=== PATIENT | female | born 1975 | race Caucasian/White ===

== ENCOUNTER 2018-01-19 10:37 | Emergency (ER) | payer SELFPAY ==
[~2018-01-19] VITALS: Ht 149.9 cm; Wt 52.2 kg
[2018-01-19] MEDS ORDERED: PANTOPRAZOLE 40 MG/10 ML (PROTONIX) VIAL IV ONE (10:45)
[2018-01-19] MEDS ORDERED: NS IV 1000 ML 1,000 ML IV ONE (10:45)
[2018-01-19] MEDS ORDERED: raNItidine 50 MG/2 ML INJ (ZANTAC) IM/IV ONE (10:45)
[2018-01-19] MEDS ORDERED: ONDANSETRON 4 MG/2 ML (SDV) Z0FRAN IVP ONE (10:45)
[2018-01-19 11:07] LABS: BASOPHILS % (AUTO) 0 % (0-10); EOSINOPHILS # (AUTO) 0.2 10^3/uL (0.0-0.3); EOSINOPHILS % (AUTO) 1 % (0-10); HEMATOCRIT 46 % (35-52); HEMOGLOBIN 15.6 G/DL (11.5-16.0); LYMPHOCYTES # (AUTO) 1.1 X 10^3 (1.0-4.0); LYMPHOCYTES % (AUTO) 7 % (12-44); MEAN CORPUSCULAR HEMOGLOBIN 25 PG (25-34); MEAN CORPUSCULAR HGB CONC 34 G/DL (32-36); MEAN CORPUSCULAR VOLUME 75 FL (80-99); MEAN PLATELET VOLUME 10.1 FL (7.4-10.4); MONOCYTES # (AUTO) 1.2 X 10^3 (0.0-1.0); MONOCYTES % (AUTO) 8 % (0-12); NEUTROPHILS # (AUTO) 12.8 X 10^3 (1.8-7.8); NEUTROPHILS % (AUTO) 84 % (42-75); PLATELET COUNT 364 10^3/uL (130-400); RED BLOOD COUNT 6.16 10^6/uL (4.35-5.85); RED CELL DISTRIBUTION WIDTH 14.6 % (10.0-14.5); WHITE BLOOD COUNT 15.2 10^3/uL (4.3-11.0)
[2018-01-19 11:26] LABS: ALANINE AMINOTRANSFERASE 99 U/L (0-55); ALBUMIN 4.6 GM/DL (3.2-4.5); ALKALINE PHOSPHATASE 187 U/L (40-136); AMMONIA 29 UMOL/L (11-32); AMYLASE 52 U/L (25-125); BILIRUBIN,TOTAL 0.4 MG/DL (0.1-1.0); BUN/CREATININE RATIO 20; CALCIUM 9.2 MG/DL (8.5-10.1); CARBON DIOXIDE 26 MMOL/L (21-32); CHLORIDE 103 MMOL/L (98-107); CREATININE SERUM 0.76 MG/DL (0.60-1.30); GFR ESTIMATED > 60; GLUCOSE 130 MG/DL (70-105); LIPASE 36 U/L (8-78); MAGNESIUM 1.9 MG/DL (1.8-2.4); POTASSIUM 3.9 MMOL/L (3.6-5.0); SODIUM 139 MMOL/L (135-145); TOTAL PROTEIN 7.5 GM/DL (6.4-8.2)
[2018-01-19 11:38] LABS: BAND NEUTROPHILS 17 %; BASOPHILS % (MANUAL) 0 %; EOSINOPHILS % (MANUAL) 1 %; LYMPHOCYTES % (MANUAL) 3 %; MONOCYTES % (MANUAL) 6 %; NEUTROPHILS % (MANUAL) 73 %; RBC MORPH NORMAL
[2018-01-19] MEDS ORDERED: NS 250 ML (IVPB) BAG IV ONE (12:15)
[2018-01-19] MEDS ORDERED: CATHETER FLUSH 10 ML SYR IV PRN (12:15)
[2018-01-19] MEDS ORDERED: IOHEXOL 350 MG/ML 100 ML (OMNIPAQUE 350) VIAL IV ONE (12:15)
--- NOTE | 2018-01-19 13:13 | Diagnostic Imaging Report ---
PROCEDURE: CT chest, abdomen, and pelvis with contrast. TECHNIQUE: Multiple contiguous axial images were obtained through the chest, abdomen, and pelvis after the administration of intravenous contrast. INDICATION: Epigastric pain, hematemesis. History of appendectomy and hysterectomy. COMPARISON: None. FINDINGS: CT chest: The heart is normal in size. No mediastinal adenopathy is seen. The central pulmonary vessels are normal. The aorta is unremarkable. No hilar adenopathy is seen. There are mildly prominent axillary lymph nodes bilaterally, the largest on the right measuring 8 mm in short axis, and the largest on the left measuring 9 mm in short axis. These may be reactive. Imaged portions of the nondistended esophagus are unremarkable. The lungs demonstrate no focal consolidation. Minimal opacity at the dependent left lung is likely atelectasis. No pleural effusion or pneumothorax is seen. No central endobronchial lesions are identified. No acute osseous abnormality is seen. CT abdomen and pelvis: No focal liver lesions are seen. The spleen is normal. The pancreas appears normal. The adrenal glands are normal. The kidneys demonstrate no focal lesions. Hyperdensities within the kidneys may represent stones versus early contrast excretion. The small and large bowel contains fluid. There is wall thickening of the small bowel, which is mildly prominent. No obstruction is seen. No free air is seen. There is no free fluid. No acute osseous abnormality is seen. The urinary bladder is decompressed. IMPRESSION: 1. Wall thickening of the small bowel with fluid throughout the large and small bowel. Findings are suggestive of enterocolitis. No evidence of obstruction is seen. 2. Mildly prominent bilateral axillary lymph nodes, likely reactive. 3. No acute thoracic abnormality seen. Dictated by: Dictated on workstation # [id number]
--- NOTE | 2018-01-19 13:27 | ED Abdominal Pain ---
General Chief Complaint: Abdominal/GI Problems Stated Complaint: N/V-VOMITING BLOOD Nursing Triage Note: PT ARRIVED PER EMS, PT CO OF VOMITING BLOOD FOR A WEEK, PT MALE FRIEND STATES VOMITED ABOUT A PINT OF BLOOD, PT SMELLS OF BLOOD AT THIS X. NO BLOOD NOTED ON PT AT THIS X. DENIES DRINKING FOR 5 YEARS, CO OF ABD PAIN 07/13 Sepsis Screen: No Definite Risk Source of Information: Patient Exam Limitations: No Limitations History of Present Illness Date Seen by Provider: Jan 19, 2018 Time Seen by Provider: 10:39 Initial Comments This 42-year-old woman presents to the emergency room via EMS after having episodes of hematemesis for the past few days. She has had black and red streaking in her emesis as stated by EMS who visualized the emesis at the home. Patient complains of some epigastric pain. She denies any recent alcohol use and states she quit drinking alcohol about 5 years ago. However, she does admit to recent methamphetamine use. She presents accompanied by her boyfriend. She recently moved to the area from [place] a few months ago. She has no local provider yet. She denies any fever or diarrhea. She has had normal bowel movements. Allergies and Home Medications Allergies Coded Allergies: No Known Drug Allergies (Unverified , 01/19/18) Home Medications Ciprofloxacin HCl 500 Mg Tablet, 500 MG PO BID Prescribed by: THAO SALAZAR on 01/19/18 1443 Famotidine 20 Mg Tablet, 20 MG PO BID Prescribed by: THAO SALAZAR on 01/19/18 1443 Metronidazole 500 Mg Tablet, 500 MG PO TID Prescribed by: THAO SALAZAR on 01/19/18 1443 Ondansetron 4 Mg Tab.rapdis, 4 MG SL Q4H PRN for NAUSEA/VOMITING-1ST LINE Prescribed by: THAO SALAZAR on 01/19/18 1443 Patient Home Medication List Home Medication List Reviewed: Yes Review of Systems Constitutional: malaise, weakness EENTM: No Symptoms Reported Respiratory: No Symptoms Reported Cardiovascular: No Symptoms Reported Gastrointestinal: See HPI Genitourinary: No Symptoms Reported Musculoskeletal: no symptoms reported Skin: no symptoms reported Psychiatric/Neurological: See HPI Endocrine: No Symptoms Reported Hematologic/Lymphatic: See HPI Past [id number] Hx Patient Social History Alcohol Use: Past History Recreational Drug Use: Yes (SMOKES METH) Smoking Status: Current Everyday Smoker Type Used: Cigarettes Recent Foreign Travel: No Contact w/Someone Who Travel: No Recent Infectious Disease Expo: No Recent Hopitalizations: No Physical Abuse: No Sexual Abuse: No Seasonal Allergies Seasonal Allergies: No Past Medical History Surgeries: Yes Ear Surgery, Eye Surgery (Artificial eye), Hysterectomy, Orthopedic Respiratory: No Cardiac: No Neurological: No : No 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 Genitourinary: No Gastrointestinal: No Musculoskeletal: No Endocrine: No HEENT: Yes (R EYE PROSTHESIS) Cancer: No Did You Recieve Any Treatments: No Psychosocial: No Nursing Suicide Risk Score: 0 Integumentary: No Physical Exam Vital Signs Vital Signs - First Documented 01/19/18 10:37 Temp 94.0 Pulse 89 Resp 18 B/P (MAP) 105/80 (88) Pulse Ox 97 O2 Delivery Room Air Capillary Refill : Less Than 3 Seconds General Appearance: WD/WN, mild distress, thin HEENT: PERRL/EOMI, normal ENT inspection, other (Oropharynx somewhat dry) Neck: normal inspection Respiratory: lungs clear, normal breath sounds, no respiratory distress, no accessory muscle use Cardiovascular: regular rate, rhythm, no edema, no murmur Gastrointestinal: normal bowel sounds, soft, tenderness (Mild in the epigastrium) Extremities: normal inspection, no pedal edema 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 She is otherwise somnolent) Skin: normal color, warm/dry Progress/Results/Core Measures Lab Results Laboratory Tests Test 01/19/18 10:55 01/19/18 13:37 Range/Units White Blood Count 15.2 H 4.3-11.0 10^3/uL Red Blood Count 6.16 H 4.35-5.85 10^6/uL Hemoglobin 15.6 11.5-16.0 G/DL Hematocrit 46 35-52 % Mean Corpuscular Volume 75 L 80-99 FL Mean Corpuscular Hemoglobin 25 25-34 PG Mean Corpuscular Hemoglobin Concent 34 32-36 G/DL Red Cell Distribution Width 14.6 H 10.0-14.5 % Platelet Count 364 130-400 10^3/uL Mean Platelet Volume 10.1 7.4-10.4 FL Neutrophils (%) (Auto) 84 H 42-75 % Lymphocytes (%) (Auto) 7 L 12-44 % Monocytes (%) (Auto) 8 0-12 % Eosinophils (%) (Auto) 1 0-10 % Basophils (%) (Auto) 0 0-10 % Neutrophils # (Auto) 12.8 H 1.8-7.8 X 10^3 Lymphocytes # (Auto) 1.1 1.0-4.0 X 10^3 Monocytes # (Auto) 1.2 H 0.0-1.0 X 10^3 Eosinophils # (Auto) 0.2 0.0-0.3 10^3/uL Basophils # (Auto) 0.0 0.0-0.1 10^3/uL Neutrophils % (Manual) 73 % Lymphocytes % (Manual) 3 % Monocytes % (Manual) 6 % Eosinophils % (Manual) 1 % Basophils % (Manual) 0 % Band Neutrophils 17 % Blood Morphology Comment NORMAL Prothrombin Time 13.0 12.2-14.7 SEC INR Comment 1.0 0.8-1.4 Activated Partial Thromboplast Time 30 24-35 SEC Sodium Level 139 135-145 MMOL/L Potassium Level 3.9 3.6-5.0 MMOL/L Chloride Level 103 98-107 MMOL/L Carbon Dioxide Level 26 21-32 MMOL/L Anion Gap 10 5-14 MMOL/L Blood Urea Nitrogen 15 7-18 MG/DL Creatinine 0.76 0.60-1.30 MG/DL Estimat Glomerular Filtration Rate > 60 BUN/Creatinine Ratio 20 Glucose Level 130 H 70-105 MG/DL Calcium Level 9.2 8.5-10.1 MG/DL Magnesium Level 1.9 1.8-2.4 MG/DL Total Bilirubin 0.4 0.1-1.0 MG/DL Aspartate Amino Transf (AST/SGOT) 37 H 5-34 U/L Alanine Aminotransferase (ALT/SGPT) 99 H 0-55 U/L Alkaline Phosphatase 187 H 40-136 U/L Ammonia 29 11-32 UMOL/L Total Protein 7.5 6.4-8.2 GM/DL Albumin 4.6 H 3.2-4.5 GM/DL Amylase Level 52 25-125 U/L Lipase 36 8-78 U/L Serum Alcohol < 10 <10 MG/DL Urine Color YELLOW Urine Clarity CLEAR Urine pH 5 5-9 Urine Specific [place] 1.015 L 1.016-1.022 Urine Protein 2+ H NEGATIVE Urine Glucose (UA) NEGATIVE NEGATIVE Urine Ketones NEGATIVE NEGATIVE Urine Nitrite NEGATIVE NEGATIVE Urine Bilirubin NEGATIVE NEGATIVE Urine Urobilinogen NORMAL NORMAL MG/DL Urine Leukocyte Esterase 3+ H NEGATIVE Urine RBC (Auto) NEGATIVE NEGATIVE Urine RBC NONE /HPF Urine WBC 5-10 H /HPF Urine Squamous Epithelial Cells 5-10 /HPF Urine Crystals NONE /LPF Urine Bacteria FEW H /HPF Urine Casts NONE /LPF Urine Mucus NEGATIVE /LPF Urine Culture Indicated YES Urine Opiates Screen NEGATIVE NEGATIVE Urine Oxycodone Screen NEGATIVE NEGATIVE Urine Methadone Screen NEGATIVE NEGATIVE Urine Propoxyphene Screen NEGATIVE NEGATIVE Urine Barbiturates Screen NEGATIVE NEGATIVE Ur Tricyclic Antidepressants Screen NEGATIVE NEGATIVE Urine Phencyclidine Screen NEGATIVE NEGATIVE Urine Amphetamines Screen POSITIVE H NEGATIVE Urine Methamphetamines Screen POSITIVE H NEGATIVE Urine Benzodiazepines Screen POSITIVE H NEGATIVE Urine Cocaine Screen NEGATIVE NEGATIVE Urine Cannabinoids Screen POSITIVE H NEGATIVE My Orders Orders - THAO CAMP MD Alcohol (01/19/18 10:45) Ammonia (01/19/18 10:45) Cbc With Automated Diff (01/19/18 10:45) Comprehensive Metabolic Panel (01/19/18 10:45) Drug Screen Stat (Urine) (01/19/18 10:45) Magnesium (01/19/18 10:45) Ua Culture If Indicated (01/19/18 10:45) Monitor-Rhythm Ecg Trace Only (01/19/18 10:45) Protime With Inr (01/19/18 10:45) Partial Thromboplastin Time (01/19/18 10:45) Red Cells Leukocytes Reduced (01/19/18 10:45) Ranitidine Injection (Zantac Injection) (01/19/18 10:45) Pantoprazole Injection (Protonix Injecti (01/19/18 10:45) Ondansetron Injection (Zofran Injectio (01/19/18 10:45) Saline Lock/Iv-Start (01/19/18 10:45) Ns Iv 1000 Ml (Sodium Chloride 0.9%) (01/19/18 10:45) Amylase (01/19/18 10:45) Lipase (01/19/18 10:45) Type And Screen (01/19/18 10:45) Manual Differential (01/19/18 10:55) Ct Chest/Abdomen/Pelvis W (01/19/18 11:51) Iohexol Injection (Omnipaque 350 Mg/Ml 1 (01/19/18 12:15) Ns (Ivpb) (Sodium Chloride 0.9%) (01/19/18 12:15) Sodium Chloride Flush (Catheter Flush Sy (01/19/18 12:15) Urine Culture (01/19/18 13:37) Ciprofloxacin Tablet (Cipro Tablet) (01/19/18 14:30) Metronidazole Tablet (Flagyl Tablet) (01/19/18 14:30) Medications Given in ED Vital Signs/I&O 01/19/18 01/19/18 10:37 15:06 Temp 94.0 Pulse 89 95 Resp 18 B/P (MAP) 105/80 (88) 100/75 Pulse Ox 97 99 O2 Delivery Room Air Blood Pressure Mean: 88 Progress Note : Progress Note Patient was treated with Zofran, ranitidine, Protonix, and IV fluids. She was thoroughly assessed including CT scan of the abdomen and pelvis. She was found to have evidence of enterocolitis on her CT scan. She was also found to have urinary tract infection. Options were discussed with patient. She would like to attempt treatment outpatient rather than through admission. She was able to tolerate water and her first dose of Cipro and Flagyl in the ER. She was ultimately dismissed with prescriptions. She did test positive for methamphetamines and marijuana. Diagonstic Imaging: CT Plain Films/CT/US/NM/MRI: abdomen, pelvis Comments CT scans viewed by me and report reviewed. See report below: NAME: SANDY TYSON [facility] REC#: [id number] PT STATUS: REG ER : 1975 PHYSICIAN: THAO CAMP MD ADMIT DATE: 01/19/18/ER Draft Date of Exam:01/19/18 CT CHEST/ABDOMEN/PELVIS W PROCEDURE: CT chest, abdomen, and pelvis with contrast. TECHNIQUE: Multiple contiguous axial images were obtained through the chest, abdomen, and pelvis after the administration of intravenous contrast. INDICATION: Epigastric pain, hematemesis. History of appendectomy and hysterectomy. COMPARISON: None. FINDINGS: CT chest: The heart is normal in size. No mediastinal adenopathy is seen. The central pulmonary vessels are normal. The aorta is unremarkable. No hilar adenopathy is seen. There are mildly prominent axillary lymph nodes bilaterally, the largest on the right measuring 8 mm in short axis, and the largest on the left measuring 9 mm in short axis. These may be reactive. Imaged portions of the nondistended esophagus are unremarkable. The lungs demonstrate no focal consolidation. Minimal opacity at the dependent left lung is likely atelectasis. No pleural effusion or pneumothorax is seen. No central endobronchial lesions are identified. No acute osseous abnormality is seen. CT abdomen and pelvis: No focal liver lesions are seen. The spleen is normal. The pancreas appears normal. The adrenal glands are normal. The kidneys demonstrate no focal lesions. Hyperdensities within the kidneys may represent stones versus early contrast excretion. The small and large bowel contains fluid. There is wall thickening of the small bowel, which is mildly prominent. No obstruction is seen. No free air is seen. There is no free fluid. No acute osseous abnormality is seen. The urinary bladder is decompressed. IMPRESSION: 1. Wall thickening of the small bowel with fluid throughout the large and small bowel. Findings are suggestive of enterocolitis. No evidence of obstruction is seen. 2. Mildly prominent bilateral axillary lymph nodes, likely reactive. 3. No acute thoracic abnormality seen. Dictated on workstation # [id number] Dict: 01/19/18 1302 Trans: 01/19/18 1312 [facility] [id number] Interpreted by: WHITNEY HUNG MD Departure Impression Primary Impression: Gastroenteritis Additional Impressions: Hematemesis Qualified Codes: K92.0 - Hematemesis Urinary tract infection Qualified Codes: N39.0 - Urinary tract infection, site not specified Polysubstance abuse Epigastric pain Disposition: HOME, SELF-CARE Condition: Improved Departure-Patient Inst. Decision time for Depature: 14:40 Referrals: NO,LOCAL PHYSICIAN (PCP/Family) Primary Care Physician Patient Instructions: Acute Abdomen (Belly Pain), Urinary Tract Infection, Adult (DC), Viral Gastroenteritis Add. Discharge Instructions: Drink plenty of clear liquids. Gradually advance your diet with small quantities of bland food as tolerated. Use your medications as prescribed. Follow-up at the [facility] on January 26 with Michelle Larson at 1:00 p.m. Call them at [phone] this week to confirm the appointment. Return to the emergency room if you have worsening symptoms. All discharge instructions reviewed with patient and/or family. Voiced understanding. Scripts Famotidine (Pepcid) 20 Mg Tablet 20 MG PO BID, #30 TAB Prov: THAO CAMP MD 01/19/18 Ondansetron (Zofran Odt) 4 Mg Tab.rapdis 4 MG SL Q4H PRN for NAUSEA/VOMITING-1ST LINE, #10 TAB Prov: THAO CAMP MD 01/19/18 Metronidazole (Flagyl) 500 Mg Tablet 500 MG PO TID, #20 TAB Prov: THAO CAMP MD 01/19/18 Ciprofloxacin HCl (Cipro) 500 Mg Tablet 500 MG PO BID, #14 TAB Prov: THAO CAMP MD 01/19/18 THAO CAMP MD Jan 19, 2018 13:27
[2018-01-19 13:43] LABS: BILIRUBIN,URINE NEGATIVE (NEGATIVE); CLARITY,URINE CLEAR; COLOR,URINE YELLOW; GLUCOSE, URINE (UA) NEGATIVE (NEGATIVE); KETONES,URINE NEGATIVE (NEGATIVE); LEUKOCYTE ESTERASE ,URINE 3+ (NEGATIVE); NITRITE,URINE NEGATIVE (NEGATIVE); PH,URINE 5 (5-9); PROTEIN,URINE 2+ (NEGATIVE); UROBILINOGEN,URINE NORMAL (NORMAL)
[2018-01-19 14:00] LABS: BACTERIA,URINE FEW /HPF
[2018-01-19 14:01] LABS: AMPHETAMINE SCREEN, URINE POSITIVE (NEGATIVE); BARBITURATE SCREEN URINE NEGATIVE (NEGATIVE); BENZODIAZEPINES SCREEN URINE POSITIVE (NEGATIVE); CANNABINOID SCREEN, URINE POSITIVE (NEGATIVE); COCAINE SCREEN URINE NEGATIVE (NEGATIVE); METHADONE STAT NEGATIVE (NEGATIVE); METHAMPHETAMINE SCREEN URINE S POSITIVE (NEGATIVE); OPIATE SCREEN URINE NEGATIVE (NEGATIVE); OXYCODONE STAT NEGATIVE (NEGATIVE); PROPOXYPHENE STAT NEGATIVE (NEGATIVE); TRICYCLIC ANTIDEPRESSANTS SCRE NEGATIVE (NEGATIVE)
[2018-01-19] MEDS ORDERED: metroNIDAZOLE 500 MG (FLAGYL) TAB PO ONE (14:30)
[2018-01-19] MEDS ORDERED: CIPROFLOXACIN 500 MG (CIPRO) TABLET PO ONE (14:30)
[2018-01-19] MEDS ORDERED: METR500T PO (14:43)
[2018-01-19] MEDS ORDERED: FAMO-119 PO (14:43)
[2018-01-19] MEDS ORDERED: CIPR-225 PO (14:43)
[2018-01-19] MEDS ORDERED: ONDA4TAB8 SL (14:43)
[2018-01-19 15:06] VITALS: BP 100/75
== END 2018-01-19 15:05 | disposition home or self-care (01) ==
LOC: EDUNIT# 10:37 → ER 10:39
DX: K52.9 Noninfective gastroenteritis and colitis, unspecified (principal); N39.0 Urinary tract infection, site not specified; F12.90 Cannabis use, unspecified, uncomplicated; F17.210 Nicotine dependence, cigarettes, uncomplicated; Z90.710 Acquired absence of both cervix and uterus; Z98.890 Other specified postprocedural states; Z97.0 Presence of artificial eye
CPT/HCPCS: 36415; 71260; 74177; 80053; 80306; 80320; 81000; 82140; 82150; 83690; 83735; 85007; 85027; 85610; 85730; 86850; 86900; 86901; 86920; 87088; 93041; 96361; 96374; 96375